=== PATIENT | male | born 1990 | race Caucasian/White ===

== ENCOUNTER 2016-06-11 19:15 | Inpatient (IN) | payer BC ==
[~2016-06-11] VITALS: Ht 172.7 cm; Wt 62.3 kg
[~2016-06-11 19:15] MED LIST: ACZONE60 GM TP; CLINDAMYCIN-BEN50 GM TP; DOXYCYCLINE IR-40 MG PO; EPIDUO FORTE 0.45 GM TP; IBUPROFEN800 MG PO; METAMUCIL PACKE1 PKT PO; PERCOCET 5/31 TABLET PO
[2016-06-11 20:08] LABS: HEMATOCRIT 20.7 % (38.0-50.0); MCHC 30.4 G/DL (30.0-36.0); MCV 74.8 FL (86-99); PLATELET COUNT 416 K/uL (156-360); RBC DIS.WIDTH-CV 15.1 % (11.8-14.6); RBC DIS.WIDTH-SD 39.8 % (39-53); RED BLOOD COUNT 2.74 M/uL (4.00-5.50); WHITE BLOOD COUNT 7.5 K/uL (4.1-10.2)
[2016-06-11 20:17] LABS: CHLORIDE 110 mEq/L (99-109); POTASSIUM 3.2 mEq/L (3.7-5.4); SODIUM 141 mEq/L (136-147)
[2016-06-11 20:18] LABS: GLUCOSE 95 mg/dL (70-99)
[2016-06-11 20:20] LABS: ANION GAP 8 MEQ/L (2-14)
[2016-06-11 20:22] LABS: GFR ESTIMATE (CALCULATED) > 59 mL/min/
[2016-06-11 20:23] LABS: UREA NITROGEN (BUN) 10 mg/dL (9-23)
[2016-06-11 21:12] VITALS: BP 142/87
[2016-06-11 21:31] VITALS: BP 142/87
[2016-06-11 22:30] VITALS: BP 133/79
[2016-06-11 23:30] VITALS: BP 127/77
[2016-06-12] VITALS (9 sets, daily range): BP systolic 106–134; BP diastolic 53–77
[2016-06-12 07:38] LABS: EOSINOPHIL (%) 2.3 % (0-5); EOSINOPHIL COUNT 0.2 K/uL (0-0.3); HEMATOCRIT 27.1 % (38.0-50.0); IMMATURE GRANULOCYTE (%) 0.3 % (0.0-0.7); LYMPHOCYTE COUNT 1.8 K/uL (1.0-2.8); MCH 24.5 PG (29.0-34.0); MCHC 32.1 G/DL (30.0-36.0); MCV 76.3 FL (86-99); MEAN PLAT.VOLUME 9.5 uM^3 (9.0-12.4); MONOCYTE (%) 7.2 % (3-12); MONOCYTE COUNT 0.5 K/uL (0-0.8); NEUTROPHIL (%) 65.9 % (45-76); NEUTROPHIL COUNT 4.9 K/uL (1.8-6.4); PLATELET COUNT 337 K/uL (156-360); RBC DIS.WIDTH-CV 15.7 % (11.8-14.6); RBC DIS.WIDTH-SD 44.5 % (39-53); WHITE BLOOD COUNT 7.5 K/uL (4.1-10.2)
[2016-06-12 07:47] LABS: ANION GAP 5 MEQ/L (2-14); CHLORIDE 110 MEQ/L (99-109); SAMPLE HEMOLYSIS CHECK 0; SAMPLE ICTERIC CHECK 0; SAMPLE LIPEMIA CHECK 0; SODIUM 141 MEQ/L (136-147); TOTAL BILIRUBIN 1.2 MG/DL (0.0-1.0)
[2016-06-12 07:49] LABS: RED BLOOD COUNT 3.55 M/uL (4.00-5.50)
[2016-06-12 07:53] LABS: ALKALINE PHOSPHATASE 41 IU/L (3-129); GFR ESTIMATE (CALCULATED) > 59 mL/min/; GLUCOSE 88 mg/dL (70-99); UREA NITROGEN (BUN) 7 mg/dL (9-23)
[2016-06-12 07:55] LABS: POTASSIUM 4.4 MEQ/L (3.7-5.4)
[2016-06-12 19:12] LABS: HEMATOCRIT 25.7 % (38.0-50.0)
[2016-06-13 00:52] LABS: HEMATOCRIT 24.6 % (38.0-50.0); MCV 76.6 FL (86-99)
[2016-06-13 04:12] VITALS: BP 105/55
[2016-06-13 06:11] LABS: EOSINOPHIL COUNT 0.2 K/uL (0-0.3); HEMATOCRIT 25.5 % (38.0-50.0); IMMATURE GRANULOCYTE (%) 0.5 % (0.0-0.7); LYMPHOCYTE COUNT 1.8 K/uL (1.0-2.8); MCH 24.3 PG (29.0-34.0); MCHC 31.8 G/DL (30.0-36.0); MCV 76.6 FL (86-99); MEAN PLAT.VOLUME 9.5 uM^3 (9.0-12.4); MONOCYTE (%) 9.1 % (3-12); MONOCYTE COUNT 0.6 K/uL (0-0.8); NEUTROPHIL (%) 59.1 % (45-76); NEUTROPHIL COUNT 3.7 K/uL (1.8-6.4); PLATELET COUNT 307 K/uL (156-360); RBC DIS.WIDTH-CV 15.7 % (11.8-14.6); RBC DIS.WIDTH-SD 44.3 % (39-53); RED BLOOD COUNT 3.33 M/uL (4.00-5.50); WHITE BLOOD COUNT 6.3 K/uL (4.1-10.2)
[2016-06-13 06:43] LABS: ANION GAP 7 MEQ/L (2-14); CHLORIDE 111 MEQ/L (99-109); DIRECT BILIRUBIN 0.1 mg/dL (0.0-0.3); GFR ESTIMATE (CALCULATED) > 59 mL/min/; GLUCOSE 86 mg/dL (70-99); POTASSIUM 4.2 MEQ/L (3.7-5.4); SAMPLE HEMOLYSIS CHECK 0; SAMPLE ICTERIC CHECK 0; SAMPLE LIPEMIA CHECK 0; SODIUM 143 MEQ/L (136-147); UREA NITROGEN (BUN) 4 mg/dL (9-23)
[2016-06-13 06:47] LABS: ALKALINE PHOSPHATASE 37 IU/L (3-129); ANION GAP 8 MEQ/L (2-14); CHLORIDE 111 MEQ/L (99-109); GFR ESTIMATE (CALCULATED) > 59 mL/min/; GLUCOSE 85 mg/dL (70-99); POTASSIUM 4.2 MEQ/L (3.7-5.4); SAMPLE HEMOLYSIS CHECK 0; SAMPLE ICTERIC CHECK 0; SAMPLE LIPEMIA CHECK 0; SODIUM 143 MEQ/L (136-147); UREA NITROGEN (BUN) 4 mg/dL (9-23)
[2016-06-13 06:48] LABS: TOTAL BILIRUBIN 0.4 MG/DL (0.0-1.0)
[2016-06-13 07:11] VITALS: BP 129/72
[2016-06-13 19:04] VITALS: BP 118/66
[2016-06-13 23:08] VITALS: BP 129/70
[2016-06-14 03:40] VITALS: BP 110/70
[2016-06-14 07:04] LABS: HEMATOCRIT 27.5 % (38.0-50.0); MCH 24.3 PG (29.0-34.0); MCHC 31.6 G/DL (30.0-36.0); MCV 76.8 FL (86-99); PLATELET COUNT 323 K/uL (156-360); RBC DIS.WIDTH-CV 16.2 % (11.8-14.6); RBC DIS.WIDTH-SD 44.9 % (39-53); RED BLOOD COUNT 3.58 M/uL (4.00-5.50); WHITE BLOOD COUNT 7.6 K/uL (4.1-10.2)
[2016-06-14 07:23] LABS: EOSINOPHIL (%) 2.8 % (0-5); EOSINOPHIL COUNT 0.2 K/uL (0-0.3); IMMATURE GRANULOCYTE (%) 0.4 % (0.0-0.7); LYMPHOCYTE COUNT 1.7 K/uL (1.0-2.8); MONOCYTE (%) 8.1 % (3-12); MONOCYTE COUNT 0.6 K/uL (0-0.8); NEUTROPHIL (%) 66.4 % (45-76); NEUTROPHIL COUNT 5.1 K/uL (1.8-6.4)
[2016-06-14 07:45] LABS: ANION GAP 7 MEQ/L (2-14); CHLORIDE 108 MEQ/L (99-109); GFR ESTIMATE (CALCULATED) > 59 mL/min/; GLUCOSE 86 mg/dL (70-99); POTASSIUM 4.6 MEQ/L (3.7-5.4); SAMPLE HEMOLYSIS CHECK 0; SAMPLE ICTERIC CHECK 0; SAMPLE LIPEMIA CHECK 0; SODIUM 143 MEQ/L (136-147); UREA NITROGEN (BUN) 8 mg/dL (9-23)
[2016-06-14 08:08] VITALS: BP 139/72
[2016-06-14 11:17] VITALS: BP 121/57
[2016-06-14 17:06] VITALS: BP 126/69
[2016-06-14 19:51] VITALS: BP 113/61
[2016-06-15 00:26] VITALS: BP 108/63
[2016-06-15 06:17] LABS: HEMATOCRIT 27.9 % (38.0-50.0); MCH 24.3 PG (29.0-34.0); MCHC 31.5 G/DL (30.0-36.0); MCV 77.1 FL (86-99); MEAN PLAT.VOLUME 9.4 uM^3 (9.0-12.4); PLATELET COUNT 305 K/uL (156-360); RBC DIS.WIDTH-CV 16.7 % (11.8-14.6); RBC DIS.WIDTH-SD 46.4 % (39-53); RED BLOOD COUNT 3.62 M/uL (4.00-5.50); WHITE BLOOD COUNT 7.6 K/uL (4.1-10.2)
[2016-06-15 06:37] LABS: EOSINOPHIL (%) 2.9 % (0-5); EOSINOPHIL COUNT 0.2 K/uL (0-0.3); IMMATURE GRANULOCYTE (%) 0.4 % (0.0-0.7); LYMPHOCYTE COUNT 1.9 K/uL (1.0-2.8); MONOCYTE COUNT 0.8 K/uL (0-0.8); NEUTROPHIL (%) 61.4 % (45-76); NEUTROPHIL COUNT 4.7 K/uL (1.8-6.4)
[2016-06-15 08:33] VITALS: BP 129/70
[2016-06-15 11:14] LABS: IRON 23 MCG/DL (35-150)
[2016-06-15] MEDS ORDERED: DOCUSATE SODIU100 MG PO (12:45)
[2016-06-15] MEDS ORDERED: FERROUS SULFAT325 MG PO (12:45)
[2016-06-15] MEDS ORDERED: ANUCORT-HC25 MG PR (12:46)
== END 2016-06-15 14:12 | disposition home or self-care (01) | DRG 394 ==
LOC: EME 19:15 → EDOF 21:09 → 5EAST 21:09
PROVIDERS: Anesthesiology; Family Medicine; Internal Medicine
PROC: 30233N1 Transfusion of Nonautologous Red Blood Cells into Peripheral Vein, Percutaneous Approach (ICD-10-PCS; principal; 2016-06-11)
PROC: 0DBB8ZX Excision of Ileum, Via Natural or Artificial Opening Endoscopic, Diagnostic (ICD-10-PCS; 2016-06-12)
DX: K64.0 First degree hemorrhoids (principal); K92.1 Melena; D50.9 Iron deficiency anemia, unspecified; E87.6 Hypokalemia; Z87.891 Personal history of nicotine dependence
CPT/HCPCS: 74177; 80048; 80053; 82248; 82607; 82746; 83540; 83880; 84443; 84466; 85014; 85018; 85025; 85027; 86850; 86900; 86901; 86920; 88305; 99281; 99285; C9113; J2250; J2405; J3010; J7030; P9016